=== PATIENT | male | born 1940 | race Caucasian/White ===

== ENCOUNTER → 2016-04-16 | Outpatient (CLI) | payer MEDICARE, BC | LOC: MW.CHFP 08:00 | PROVIDERS: ATTEND Family Medicine | DX: M06.9 Rheumatoid arthritis, unspecified (principal); L30.9 Dermatitis, unspecified | CPT/HCPCS: G0463 ==

== ENCOUNTER 2016-06-29 17:38 | Emergency (ER) | payer MEDICARE, BC ==
[2016-06-29] MEDS ORDERED: Sodium Chloride 0.9% 10 ML Syringe FLUSH PRN (17:49)
[2016-06-29] MEDS ORDERED: Pantoprazole 40 MG Vial IVPUSH ONE (17:49)
[2016-06-29] MEDS ORDERED: Sodium Chloride 0.9% 2.5 ML Syringe FLUSH PRN (17:49)
[2016-06-29] MEDS ORDERED: Pantoprazole 80 MG in Sodium Chloride 0.9% 100 ML IV SCH (18:00)
[2016-06-29] MEDS ORDERED: Sodium Chloride 0.9% 1,000 ML IV SCH (18:00)
--- NOTE | 2016-06-29 18:09 | EDM.PDOC ---
ED HPI GENERAL MEDICAL PROBLEM - General Chief Complaint: General Stated Complaint: SORE THROAT, FEVER Time Seen by Provider: 06/29/16 17:45 - History of Present Illness INITIAL COMMENTS - FREE TEXT/NARRATIVE: HISTORY AND PHYSICAL: History of present illness: Patient is a 75-year-old white male who presents with concern of generalized weakness sore throat with intermittent bleeding from the right peritonsillar area who also reports black stools x2-3 weeks he states the weakness has been more over the last day . Patient denies chest pain shortness of breath palpitations or other concern Review of systems: As per history of present illness and below otherwise all systems reviewed and negative. Past medical history: As per history of present illness and as reviewed below otherwise noncontributory. Surgical history: As per history of present illness and as reviewed below otherwise noncontributory. Social history: No reported history of drug or alcohol abuse. Family history: As per history of present illness and as reviewed below otherwise noncontributory. Physical exam: HEENT: Atraumatic, normocephalic, pupils reactive, negative for conjunctival pallor or scleral icterus, mucous membranes moist, throat clear, neck supple, nontender, trachea midline. Lungs: Slightly diminished coarse bilaterally, breath sounds equal bilaterally, chest nontender. Heart: S1S2, regular, negative for clicks, rubs, or JVD. Abdomen: Soft, nondistended, nontender. Negative for masses or hepatosplenomegaly. Negative for costovertebral tenderness. Pelvis: Stable nontender. Genitourinary: Deferred. Rectal: Nontender Brown stool heme-negative Extremities: Atraumatic, negative for cords or calf pain. Neurovascular unremarkable. Neuro: Awake, alert, oriented. Cranial nerves II through XII unremarkable. Cerebellum unremarkable. Motor and sensory unremarkable throughout. Exam nonfocal. Diagnostics: CBC CMP PT/INR troponin type and screen EKG chest x-ray Therapeutics: IV O2 monitor Impression: #1 history of right peritonsillar intermittent bleeding #2 generalized weakness #3 history of dark stool Definitive disposition and diagnosis as appropriate pending reevaluation and review of above. throat Pain Score (Numeric/FACES): 6 - Related Data Allergies Allergy/AdvReac Type Severity Reaction Status Date / Time No Known Allergies Allergy Verified 06/29/16 17:47 Home Meds: Home Meds Aspirin 81 mg PO DAILY 06/01/13 [History] Mometasone Furoate 1 applic TOP BID 05/12/14 [History] amLODIPine [Norvasc] 5 mg PO DAILY 05/12/14 [History] Folic Acid 1 mg PO DAILY 08/18/15 [History] Methotrexate Sodium [Methotrexate] 2.5 mg PO ASDIRECTED 08/18/15 [History] atorvaSTATin Calcium [Atorvastatin Calcium] 80 mg PO DAILY 08/18/15 [History] rOPINIRole HCl [Requip] 0.25 mg PO DAILY 08/18/15 [History] Albuterol [Proair HFA] 1 puff INH ASDIRECTED 06/29/16 [History] Dimethicone [Cerave] 1 appful TOP DAILY 06/29/16 [History] Past Medical History - Past Health History Medical/Surgical History: Denies Medical/Surgical History HEENT History: Reports: Impaired Vision Other HEENT History: wears glasses Cardiovascular History: Reports: High Cholesterol, Hypertension - Past Surgical History Musculoskeletal Surgical History: Reports: Shoulder Replacement, Other (See Below) Social & Family History - Family History Endocrine/Metabolic: Reports: Diabetes, type II - Tobacco Use Smoking Status *Q: Former Smoker Years of Tobacco use: 50 Used Tobacco, but Quit: Yes Month Tobacco Last Used: a week ago Second Hand Smoke Exposure: No - Alcohol Use Days Per Week of Alcohol Use: 0 Number of Drinks Per Day: 0 Total Drinks Per Week: 0 - Recreational Drug Use Recreational Drug Use: No ED ROS GENERAL - Review of Systems Review Of Systems: ROS reveals no pertinent complaints other than HPI. ED EXAM, GENERAL - Physical Exam Exam: See Below (See dictation) Course - Vital Signs Last Recorded V/S: Last Vital Signs Temp 37.9 C 06/29/16 17:47 Pulse 116 H 06/29/16 17:47 Resp 22 H 06/29/16 17:47 BP 134/71 06/29/16 17:47 Pulse Ox 93 L 06/29/16 17:47 - Orders/Labs/Meds Orders: Active Orders 24 hr Category Date Time Status Cardiac Monitoring [RC] . DIRECTED Care 06/29/16 17:48 Active EKG Documentation Completion [RC] STAT Care 06/29/16 17:48 Active Oxygen Therapy, ED [RC] ASDIRECTED Care 06/29/16 17:48 Active Pulse Oximetry [RC] ASDIRECTED Care 06/29/16 17:48 Active Chest 1V Frontal [CR] Stat Exams 06/29/16 17:49 Taken CULTURE STREP A CONFIRMATION [RM] Stat Lab 06/29/16 18:13 Results STREP SCRN A RAPID W CULT CONF [RM] Stat Lab 06/29/16 18:13 Results TYPE AND SCREEN [BBK] Stat Lab 06/29/16 18:08 Received UA W/MICROSCOPIC [URIN] Stat Lab 06/29/16 17:48 Uncollected Pantoprazole [ProTONIX IV] 80 mg Med 06/29/16 18:00 Active Sodium Chloride 0.9% [Normal Saline] 100 ml IV .Continuous Sodium Chloride 0.9% [Normal Saline] 1,000 ml Med 06/29/16 18:00 Active IV STAT Sodium Chloride 0.9% [Saline Flush] Med 06/29/16 17:49 Active 10 ml FLUSH ASDIRECTED PRN Sodium Chloride 0.9% [Saline Flush] Med 06/29/16 17:49 Active 2.5 ml FLUSH ASDIRECTED PRN Saline Lock Insert [OM.PC] Stat Oth 06/29/16 17:48 Ordered Medication Orders Pantoprazole Sodium 80 mg/ (Sodium Chloride) 100 mls @ 10 mls/hr IV .Continuous NARESH Last Admin: 06/29/16 18:23 Dose: 10 mls/hr Sodium Chloride (Normal Saline) 1,000 mls @ 125 mls/hr IV STAT NARESH Last Admin: 06/29/16 18:09 Dose: 125 mls/hr Sodium Chloride (Saline Flush) 10 ml FLUSH ASDIRECTED PRN PRN Reason: Keep Vein Open Sodium Chloride (Saline Flush) 2.5 ml FLUSH ASDIRECTED PRN PRN Reason: Keep Vein Open Labs: Laboratory Tests 06/29/16 06/29/16 06/29/16 Range/Units 18:08 18:08 18:08 WBC 4.27 (4.0-11.0) K/uL RBC 2.96 L (4.50-5.90) M/uL Hgb 11.1 L (13.0-17.0) g/dL Hct 34.0 L (38.0-50.0) % MCV 114.9 H (80.0-98.0) fL MCH 37.5 H (27.0-32.0) pg MCHC 32.6 (31.0-37.0) g/dL RDW Std Deviation 69.7 H (28.0-62.0) fl RDW Coeff of Jesse 17 H (11.0-15.0) % Plt Count 139 L (150-400) K/uL MPV 10.60 (7.40-12.00) fL Neut % (Auto) 72.3 (48.0-80.0) % Lymph % (Auto) 12.9 L (16.0-40.0) % [place] % (Auto) 7.5 (0.0-15.0) % Eos % (Auto) 7.3 H (0.0-7.0) % Baso % (Auto) 0.0 (0.0-1.5) % Neut # (Auto) 3.1 (1.4-5.7) K/uL Lymph # (Auto) 0.6 (0.6-2.4) K/uL [place] # (Auto) 0.3 (0.0-0.8) K/uL Eos # (Auto) 0.3 (0.0-0.7) K/uL Baso # (Auto) 0.0 (0.0-0.1) K/uL Nucleated RBC % 0.0 /100WBC Nucleated RBCs # 0 K/uL INR 1.09 (0.86-1.11) Sodium 139 (136-146) mmol/L Potassium 4.4 (3.5-5.1) mmol/L Chloride 108 (98-110) mmol/L Carbon Dioxide 23 (21-31) mmol/L BUN 18 (6.0-23.0) mg/dL Creatinine 1.3 (0.6-1.5) mg/dL Est Cr Clr Drug Dosing 49.13 mL/min Estimated GFR (MDRD) 53.5 ml/min Glucose 168 H (60-110) mg/dL Calcium 9.1 (8.8-10.8) mg/dL Total Bilirubin 1.5 (0.1-1.5) mg/dL AST 46 H (5-40) IU/L ALT 52 (8-54) IU/L Alkaline Phosphatase 133 (40-150) Troponin I (0.0-0.29) NG/ML Total Protein 6.1 (6.0-8.0) g/dL Albumin 3.4 (3.4-4.8) g/dL Globulin 2.7 (2.0-3.5) g/dL Albumin/Globulin Ratio 1.3 (1.3-2.8) 06/29/16 Range/Units 18:08 WBC (4.0-11.0) K/uL RBC (4.50-5.90) M/uL Hgb (13.0-17.0) g/dL Hct (38.0-50.0) % MCV (80.0-98.0) fL MCH (27.0-32.0) pg MCHC (31.0-37.0) g/dL RDW Std Deviation (28.0-62.0) fl RDW Coeff of Jesse (11.0-15.0) % Plt Count (150-400) K/uL MPV (7.40-12.00) fL Neut % (Auto) (48.0-80.0) % Lymph % (Auto) (16.0-40.0) % [place] % (Auto) (0.0-15.0) % Eos % (Auto) (0.0-7.0) % Baso % (Auto) (0.0-1.5) % Neut # (Auto) (1.4-5.7) K/uL Lymph # (Auto) (0.6-2.4) K/uL [place] # (Auto) (0.0-0.8) K/uL Eos # (Auto) (0.0-0.7) K/uL Baso # (Auto) (0.0-0.1) K/uL Nucleated RBC % /100WBC Nucleated RBCs # K/uL INR (0.86-1.11) Sodium (136-146) mmol/L Potassium (3.5-5.1) mmol/L Chloride (98-110) mmol/L Carbon Dioxide (21-31) mmol/L BUN (6.0-23.0) mg/dL Creatinine (0.6-1.5) mg/dL Est Cr Clr Drug Dosing mL/min Estimated GFR (MDRD) ml/min Glucose (60-110) mg/dL Calcium (8.8-10.8) mg/dL Total Bilirubin (0.1-1.5) mg/dL AST (5-40) IU/L ALT (8-54) IU/L Alkaline Phosphatase (40-150) Troponin I < 0.10 (0.0-0.29) NG/ML Total Protein (6.0-8.0) g/dL Albumin (3.4-4.8) g/dL Globulin (2.0-3.5) g/dL Albumin/Globulin Ratio (1.3-2.8) Meds: Medications Generic Name Dose Route Start Last Admin Trade Name Freq PRN Reason Stop Dose Admin Pantoprazole Sodium 80 mg/ 100 mls @ 10 mls/hr 06/29/16 18:00 06/29/16 18:23 Sodium Chloride IV 10 mls/hr .Continuous NARESH Administration Sodium Chloride 1,000 mls @ 125 mls/hr 06/29/16 18:00 06/29/16 18:09 Normal Saline IV 125 mls/hr STAT NARESH Administration Sodium Chloride 10 ml 06/29/16 17:49 Saline Flush FLUSH ASDIRECTED PRN Keep Vein Open Sodium Chloride 2.5 ml 06/29/16 17:49 Saline Flush FLUSH ASDIRECTED PRN Keep Vein Open Discontinued Medications Generic Name Dose Route Start Last Admin Trade Name Freq PRN Reason Stop Dose Admin Pantoprazole Sodium 80 mg 06/29/16 17:49 06/29/16 18:10 Protonix Iv IVPUSH 06/29/16 17:50 80 mg .BOLUS ONE Administration Departure - Departure Time of Disposition: 18:42 Disposition: Admitted As Inpatient 64 Condition: good Clinical Impression: Weakness, Pneumonia - Discharge Information Forms: ED Department Discharge - My Orders Last 24 Hours: My Active Orders 06/29/16 17:48 Cardiac Monitoring [RC] . DIRECTED EKG Documentation Completion [RC] STAT Oxygen Therapy, ED [RC] ASDIRECTED Pulse Oximetry [RC] ASDIRECTED UA W/MICROSCOPIC [URIN] Stat Saline Lock Insert [OM.PC] Stat 06/29/16 17:49 Chest 1V Frontal [CR] Stat Sodium Chloride 0.9% [Saline Flush] 10 ml FLUSH ASDIRECTED PRN Sodium Chloride 0.9% [Saline Flush] 2.5 ml FLUSH ASDIRECTED PRN 06/29/16 18:00 Pantoprazole [ProTONIX IV] 80 mg Sodium Chloride 0.9% [Normal Saline] 100 ml IV .Continuous Sodium Chloride 0.9% [Normal Saline] 1,000 ml IV STAT 06/29/16 18:08 TYPE AND SCREEN [BBK] Stat 06/29/16 18:13 CULTURE STREP A CONFIRMATION [RM] Stat STREP SCRN A RAPID W CULT CONF [RM] Stat - Assessment/Plan Last 24 Hours: My Active Orders 06/29/16 17:48 Cardiac Monitoring [RC] . DIRECTED EKG Documentation Completion [RC] STAT Oxygen Therapy, ED [RC] ASDIRECTED Pulse Oximetry [RC] ASDIRECTED UA W/MICROSCOPIC [URIN] Stat Saline Lock Insert [OM.PC] Stat 06/29/16 17:49 Chest 1V Frontal [CR] Stat Sodium Chloride 0.9% [Saline Flush] 10 ml FLUSH ASDIRECTED PRN Sodium Chloride 0.9% [Saline Flush] 2.5 ml FLUSH ASDIRECTED PRN 06/29/16 18:00 Pantoprazole [ProTONIX IV] 80 mg Sodium Chloride 0.9% [Normal Saline] 100 ml IV .Continuous Sodium Chloride 0.9% [Normal Saline] 1,000 ml IV STAT 06/29/16 18:08 TYPE AND SCREEN [BBK] Stat 06/29/16 18:13 CULTURE STREP A CONFIRMATION [RM] Stat STREP SCRN A RAPID W CULT CONF [RM] Stat
[2016-06-29] MEDS ORDERED: Levofloxacin/Dextrose 5%-Water 750 MG in Premix Bag 1 BAG IV ONE (18:43)
[2016-06-29 19:26] VITALS: BP 127/53
--- NOTE | 2016-07-01 14:57 | CR ---
MEXAM DATE: 06/29/16 PATIENT'S AGE: 75 Patient: RENÉ STAHL Facility: [place], [place] Site . Site : 1940 Study: XRay Chest [id number]/2017 6:23:06 PM Ordering Physician: Jasmeet Reynoso Final Report: HISTORY: Shortness of breath and fever. Comparison: None. Findings: Mild patchy airspace opacity in the lower lungs may represent early pneumonia. Heart size and pulmonary vascularity are within normal limits. Mild silhouetting of the right hemidiaphragm. Left shoulder arthroplasty. Dictated by Shanae Rutherford MD @ Jun 29 2016 6:27PM (Electronic Signature) Report Signed by Proxy. DELMY
== END 2016-06-29 19:15 | disposition left against medical advice (07) ==
LOC: MW.ED 17:38
DX: J18.9 Pneumonia, unspecified organism (principal); R53.1 Weakness; E78.00 Pure hypercholesterolemia, unspecified; I10 Essential (primary) hypertension; Z79.82 Long term (current) use of aspirin; Z79.899 Other long term (current) drug therapy; Z87.891 Personal history of nicotine dependence; Z86.2 Personal history of diseases of the blood and blood-forming organs and certain disorders involving the immune mechanism
CPT/HCPCS: 36415; 71010; 80053; 84484; 85025; 85610; 86850; 86900; 86901; 87040; 87081; 87880; 93005; 96365; 96376; 99284; C9113; J7030; J7040

== ENCOUNTER 2016-07-09 17:01 | Observation (INO) | payer MEDICARE, BC ==
--- NOTE | 2016-07-09 17:48 | PCM.HP ---
<Walker,Jeison - Last Filed: 07/09/16 19:24> H&P History of Present Illness - General Date of Service: 07/09/16 Admit Problem/Dx: 75 yo male with history of HTN, Hypercholesterolemia, RA, Eczema & RLS presented to [facility] clinic earlier today with rash and swelling of hands and feet. He was admitted directly to observation for Erythema Multiforme with Mucus Membrane involvement secondary to Levaquin use. Symptoms started 2-3 weeks ago and first began as swelling of both hands. He saw a [employer] PA 2 weeks ago and was told he has eczema and was prescribed Betamethasone cream. His swelling progressed up both his arms and he developed some blistering type lesions on his hands as well. He then presented to the ED on 06/29 for his swelling and during the work-up he was subsequently found to have a pneumonia but left AMA before work-up was complete. He was prescribed Levaquin prior to leaving the ED. Over the next few days he developed swelling of his feet and blistering lesions over his feet and back. Over the past 2 days he has started to have sore throat with some minor difficulty breathing and some pain with swallowing. He denies any recent change of clothing, linen, soap, detergent or other cleaning products. He has not eaten anything unusual. He has not travelled or been outdoors/hiking. He has not had any changes in his medications or new medications other than the betamethasone and levaquin. According to patient he took only 3 doses of levaquin but patients states he took all 5 doses. His home medications include Amlodipine, Atorvastatin, Ropinirole, Methotrexate, Folic Acid, Aspirin, Colbestasol. He is allergic to shellfish but denies eating any seafood at all. Source of Information: Patient, Family, Old Records - Related Data Allergies/Adverse Reactions: Allergies Allergy/AdvReac Type Severity Reaction Status Date / Time levofloxacin [From Levaquin] Allergy rashes Verified 07/09/16 18:04 Home Medications: Home Meds Aspirin 81 mg PO DAILY 06/01/13 [History] amLODIPine [Norvasc] 5 mg PO DAILY 05/12/14 [History] Methotrexate Sodium [Methotrexate] 15 mg PO WE@0900 08/18/15 [History] atorvaSTATin Calcium [Atorvastatin Calcium] 80 mg PO BEDTIME 08/18/15 [History] rOPINIRole HCl [Requip] 0.5 mg PO BEDTIME 08/18/15 [History] Folic Acid 1 mg PO DAILY #90 tablet 07/10/16 [Rx] Prednisone [IJD: Prednisone] 10 mg PO ASDIRECTED #85 tab 07/10/16 [Rx] Past Medical History - Past Health History Medical/Surgical History: Denies Medical/Surgical History HEENT History: Reports: Impaired Vision Other HEENT History: wears glasses Cardiovascular History: Reports: High Cholesterol, Hypertension Respiratory History: Reports: Asthma Gastrointestinal History: Reports: None Genitourinary History: Reports: None Musculoskeletal History: Reports: Other (See Below) Other Musculoskeletal History: Arthritis Neurological History: Reports: None Psychiatric History: Reports: None Endocrine/Metabolic History: Reports: None Hematologic History: Reports: None Immunologic History: Reports: None Oncologic (Cancer) History: Reports: None Dermatologic History: Reports: Eczema - Infectious Disease History Infectious Disease History: Reports: Chicken Pox, Mumps - Past Surgical History Musculoskeletal Surgical History: Reports: Shoulder Replacement, Other (See Below) Social & Family History - Family History Family Medical History: Noncontributory Endocrine/Metabolic: Reports: Diabetes, type II - Tobacco Use Smoking Status *Q: Former Smoker Years of Tobacco use: 50 Used Tobacco, but Quit: Yes Month Tobacco Last Used: a week ago Second Hand Smoke Exposure: No - Caffeine Use Caffeine Use: Reports: Coffee - Alcohol Use Days Per Week of Alcohol Use: 0 Number of Drinks Per Day: 0 Total Drinks Per Week: 0 - Recreational Drug Use Recreational Drug Use: No H&P Review of Systems - Review of Systems: Review Of Systems: See Below General: Reports: Other (general swelling) Pulmonary: Reports: Shortness of Breath Cardiovascular: Reports: No Symptoms Gastrointestinal: Reports: No Symptoms Genitourinary: Reports: No Symptoms Musculoskeletal: Reports: Other (swelling) Skin: Reports: Rash, Erythema, Lesions Psychiatric: Reports: No Symptoms Neurological: Reports: Other (memory deficit) Exam - Exam Exam: See Below - Vital Signs Weight: 91 kg - Exam General: Other (generalized swelling) HEENT: Conjunctiva Clear, EACs Clear, Other (diffuse oral vesicular lesions and swelling) Neck: Other (edema) Lungs: Other (edema) Cardiovascular: Regular Rate, Regular Rhythm Abdomen: Normal Bowel Sounds, Soft, Pelvis Stable Extremities: Edema Skin: Other (diffuse vesicular lesions of BL hands, forearms and feet. diffuse erythema multiforme lesions of back) Neurological: Reflexes Equal Bilateral - Patient Data Result Diagrams: 07/09/16 19:07 *Q Meaningful Use (ADM) - VTE *Q VTE Criteria *Q: - Stroke *Q Stroke Criteria *Q: - AMI *Q AMI Criteria *Q: Problem List Initiated/Reviewed/Updated: Yes Orders Last 24hrs: Active Orders 24 hr Category Date Time Status Soft Diet [DIET] Diet 07/09/16 Dinner Active Assessment/Plan Comment:: Assessment: 75 yo male with history of HTN, Hypercholesterolemia, RA, Eczema & RLS admitted for generalized swelling and erythema multiforme rash with mucus membrane involvement likely secondary to drug reaction to levofloxacin. Patient also has memory deficit which may be secondary to dementia. Plan: 1. admit to observation 2. hold all medications 3. soft diet 4. Solumedrol IV 125 mg singe dose today 5. Start PO Prednisone tomorrow if improvement seen 6. obtain CXR due to PNA on recent CXR 7. order CBC, CMP, CRP, Total CK 8. as per orders <Keith Sher - Last Filed: 07/13/16 15:51> H&P History of Present Illness - General Admit Problem/Dx: Admission Diagnosis/Problem Admission Diagnosis/Problem Generalized edema I performed a history and physical examination of the patient and I have discussed his management with the resident. I have reviewed the residents note and agree with the documented findings and plan of care. Exam - Vital Signs Vital Signs: Last Vital Signs Temp 37.0 C 07/10/16 04:00 Pulse 66 07/10/16 04:00 Resp 16 07/10/16 04:00 BP 124/60 07/10/16 04:00 Pulse Ox 93 L 07/10/16 04:00 - Patient Data Result Diagrams: 07/10/16 04:24 07/09/16 19:07 *Q Meaningful Use (ADM) - VTE *Q VTE Criteria *Q: - Stroke *Q Stroke Criteria *Q: - AMI *Q AMI Criteria *Q:
[2016-07-09] MEDS ORDERED: methylPREDNISolone Sodium Succinate 125 MG/2 ML SDV IVPUSH ONE (18:03)
[2016-07-09 19:40] LABS: CHLORIDE,CL 110 mmol/L (98-110); SODIUM,NA 141 mmol/L (136-146)
[2016-07-10 04:58] VITALS: BP 124/60
--- NOTE | 2016-07-10 09:00 | PCM.DCSUM1 ---
Discharge Summary - Hospital Course Free Text/Narrative:: 75 yo male was directly admitted to observation due to Acute generalized edema and Erythema Multiforme secondary to Levaquin. He was monitored for oral airway swelling while starting Steroid therapy. Patient was stable otherwise. He was given Solumedrol 125 mg IV on first night. He remained stable overnight. There was no hypoxia or sob. He was discharged home on 4 week taper of Prednisone. He will be following up with Dr. Pretty on 07/24/16 at 2:00 pm - Discharge Data Discharge Date: 07/10/16 Discharge Disposition: Home, Self-Care 01 Condition: Good - Patient Instructions Diet: Usual Diet as Tolerated Activity: As Tolerated Notify Provider of: Fever, Increased Pain, Swelling and Redness, Drainage, Nausea and/or Vomiting - Discharge Plan Prescriptions/Med Rec: Folic Acid 1 mg PO DAILY #90 tablet Home Medications: Home Meds Aspirin 81 mg PO DAILY 06/01/13 [History] amLODIPine [Norvasc] 5 mg PO DAILY 05/12/14 [History] Methotrexate Sodium [Methotrexate] 15 mg PO WE@0900 08/18/15 [History] atorvaSTATin Calcium [Atorvastatin Calcium] 80 mg PO BEDTIME 08/18/15 [History] rOPINIRole HCl [Requip] 0.5 mg PO BEDTIME 08/18/15 [History] Folic Acid 1 mg PO DAILY #90 tablet 07/10/16 [Rx] - Patient Data Vitals - Most Recent: Last Vital Signs Temp 37.0 C 07/10/16 04:00 Pulse 66 07/10/16 04:00 Resp 16 07/10/16 04:00 BP 124/60 07/10/16 04:00 Pulse Ox 93 L 07/10/16 04:00 Weight - Most Recent: 91 kg I&O - Last 24 hours: Intake & Output 07/09/16 07/10/16 07/10/16 22:59 06:59 14:59 Intake Total 550 Output Total 630 Balance -80 Lab Results - Last 24 hrs: Laboratory Results - last 24 hr 07/09/16 07/09/16 07/09/16 Range/Units 19:07 19:07 19:07 WBC 5.40 (4.0-11.0) K/uL RBC 3.03 L (4.50-5.90) M/uL Hgb 11.2 L (13.0-17.0) g/dL Hct 34.4 L (38.0-50.0) % MCV 113.5 H (80.0-98.0) fL MCH 37.0 H (27.0-32.0) pg MCHC 32.6 (31.0-37.0) g/dL RDW Std Deviation 66.0 H (28.0-62.0) fl RDW Coeff of Jesse 16 H (11.0-15.0) % Plt Count 110 L (150-400) K/uL MPV 10.30 (7.40-12.00) fL Neut % (Auto) 74.7 (48.0-80.0) % Lymph % (Auto) 9.4 L (16.0-40.0) % [place] % (Auto) 3.3 (0.0-15.0) % Eos % (Auto) 12.6 H (0.0-7.0) % Baso % (Auto) 0.0 (0.0-1.5) % Neut # (Auto) 4.0 (1.4-5.7) K/uL Lymph # (Auto) 0.5 L (0.6-2.4) K/uL [place] # (Auto) 0.2 (0.0-0.8) K/uL Eos # (Auto) 0.7 (0.0-0.7) K/uL Baso # (Auto) 0.0 (0.0-0.1) K/uL Nucleated RBC % 0.0 /100WBC Nucleated RBCs # 0 K/uL Sodium 141 (136-146) mmol/L Potassium 4.0 (3.5-5.1) mmol/L Chloride 110 (98-110) mmol/L Carbon Dioxide 20 L (21-31) mmol/L BUN 20 (6.0-23.0) mg/dL Creatinine 0.8 (0.6-1.5) mg/dL Est Cr Clr Drug Dosing 79.84 mL/min Estimated GFR (MDRD) > 60.0 ml/min Glucose 92 (60-110) mg/dL Calcium 8.3 L (8.8-10.8) mg/dL Total Bilirubin 0.9 (0.1-1.5) mg/dL AST 43 H (5-40) IU/L ALT 35 (8-54) IU/L Alkaline Phosphatase 118 (40-150) Creatine Kinase 35 (9-236) IU/L C-Reactive Protein 13.93 H (0.0-0.5) mg/dL Total Protein 5.8 L (6.0-8.0) g/dL Albumin 3.0 L (3.4-4.8) g/dL Globulin 2.8 (2.0-3.5) g/dL Albumin/Globulin Ratio 1.1 L (1.3-2.8) Vitamin B12 827 (200-1100) PG/ML 07/10/16 07/10/16 Range/Units 04:24 04:24 WBC 3.58 L (4.0-11.0) K/uL RBC 2.94 L (4.50-5.90) M/uL Hgb 10.7 L (13.0-17.0) g/dL Hct 33.2 L (38.0-50.0) % MCV 112.9 H (80.0-98.0) fL MCH 36.4 H (27.0-32.0) pg MCHC 32.2 (31.0-37.0) g/dL RDW Std Deviation 65.3 H (28.0-62.0) fl RDW Coeff of Jesse 16 H (11.0-15.0) % Plt Count 124 L (150-400) K/uL MPV 11.40 (7.40-12.00) fL Neut % (Auto) 93.3 H (48.0-80.0) % Lymph % (Auto) 5.9 L (16.0-40.0) % [place] % (Auto) 0.8 (0.0-15.0) % Eos % (Auto) 0.0 (0.0-7.0) % Baso % (Auto) 0.0 (0.0-1.5) % Neut # (Auto) 3.3 (1.4-5.7) K/uL Lymph # (Auto) 0.2 L (0.6-2.4) K/uL [place] # (Auto) 0.0 (0.0-0.8) K/uL Eos # (Auto) 0.0 (0.0-0.7) K/uL Baso # (Auto) 0.0 (0.0-0.1) K/uL Nucleated RBC % 0.0 /100WBC Nucleated RBCs # 0 K/uL Sodium (136-146) mmol/L Potassium (3.5-5.1) mmol/L Chloride (98-110) mmol/L Carbon Dioxide (21-31) mmol/L BUN (6.0-23.0) mg/dL Creatinine (0.6-1.5) mg/dL Est Cr Clr Drug Dosing mL/min Estimated GFR (MDRD) ml/min Glucose (60-110) mg/dL Calcium (8.8-10.8) mg/dL Total Bilirubin (0.1-1.5) mg/dL AST (5-40) IU/L ALT (8-54) IU/L Alkaline Phosphatase (40-150) Creatine Kinase (9-236) IU/L C-Reactive Protein 12.27 H (0.0-0.5) mg/dL Total Protein (6.0-8.0) g/dL Albumin (3.4-4.8) g/dL Globulin (2.0-3.5) g/dL Albumin/Globulin Ratio (1.3-2.8) Vitamin B12 (200-1100) PG/ML Med Orders - Current: Current Medications Discontinued Medications Methylprednisolone Sodium Succinate (Solu-Medrol) 125 mg IVPUSH ONETIME ONE Stop: 07/09/16 18:04 Last Admin: 07/09/16 18:30 Dose: 125 mg *Q Meaningful Use (DIS) - VTE *Q VTE Criteria *Q: - Stroke *Q Stroke Criteria *Q: - AMI *Q AMI Criteria *Q:
--- NOTE | 2016-07-10 10:17 | CR ---
EXAM DATE: 07/09/16 PATIENT'S AGE: 75 Patient: RENÉ STAHL Facility: [place], [place] Site . Site : 1940 Study: XRay Chest [id number]/30/2017 8:29:23 PM Ordering Physician: Nikky Parker Final Report: INDICATION: Pneumonia, shortness of breath. TECHNIQUE: Chest radiograph 2 views COMPARISON: 06/29/2016. FINDINGS: Cardiovascular and mediastinum: The heart silhouette is normal in size and morphology. The mediastinum is normal in appearance. Lungs and pleural spaces: Both lungs are unremarkable in appearance. No sign of pleural effusion seen. No pneumothorax is identified. Bones and soft tissues: Left shoulder arthroplasty hardware, partially visualized. IMPRESSION: 1. No residual infiltrates identified, with particular attention to the lower lung zones. Improved aeration of the lung bases from 10 days prior. No new focal infiltrate identified. Dictated by Clay Yuen MD @ 07/09/2016 8:33:24 PM Dictated by: Clay Yuen MD @ 07/09/2016 20:33:28 (Electronic Signature) Report Signed by Proxy. [facility] HOSPITALKatherine
== END 2016-07-10 11:15 | disposition home or self-care (01) ==
LOC: MW.MS 17:01
PROVIDERS: ADMIT Internal Medicine; ATTEND Internal Medicine
DX: R60.1 Generalized edema (principal); L51.9 Erythema multiforme, unspecified; T37.8X5A Adverse effect of other specified systemic anti-infectives and antiparasitics, initial encounter; I10 Essential (primary) hypertension; E78.00 Pure hypercholesterolemia, unspecified; M06.9 Rheumatoid arthritis, unspecified; L30.9 Dermatitis, unspecified; G25.81 Restless legs syndrome; J45.909 Unspecified asthma, uncomplicated; M19.90 Unspecified osteoarthritis, unspecified site; Z87.891 Personal history of nicotine dependence; Z79.82 Long term (current) use of aspirin; Z79.899 Other long term (current) drug therapy; Z96.619 Presence of unspecified artificial shoulder joint
CPT/HCPCS: 36415; 71020; 80053; 82550; 82607; 85025; 86140; 96374; G0378; J2930

== ENCOUNTER 2016-07-26 11:47 | Emergency (ER) | payer MEDICARE, BC ==
[2016-07-26 12:18] VITALS: BP 147/91
--- NOTE | 2016-07-26 12:32 | EDM.PDOC ---
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 Review of systems: As per history of present illness and below otherwise all systems reviewed and negative. Past medical history: As per history of present illness and as reviewed below otherwise noncontributory. Surgical history: As per history of present illness and as reviewed below otherwise noncontributory. Social history: No reported history of drug or alcohol abuse. Family history: As per history of present illness and as reviewed below otherwise noncontributory. Physical exam: HEENT: Atraumatic, normocephalic, pupils reactive, negative for conjunctival pallor or scleral icterus, mucous membranes moist, throat clear, neck supple, nontender, trachea midline. Lungs: Clear to auscultation, breath sounds equal bilaterally, chest nontender. Heart: S1S2, regular, negative for clicks, rubs, or JVD. Abdomen: Soft, nondistended, nontender. Negative for masses or hepatosplenomegaly. Negative for costovertebral tenderness. Pelvis: Stable nontender. Genitourinary: Deferred. Rectal: Deferred. Extremities: Atraumatic, negative for cords or calf pain. Neurovascular unremarkable. Neuro: Awake, alert, oriented. Cranial nerves II through XII unremarkable. Cerebellum unremarkable. Motor and sensory unremarkable throughout. Exam nonfocal. Skin: Bilateral hands with several lesions in various stages of infection and nonhealing. Diagnostics: [] Therapeutics: [] Impression: [Erythema multiforma exacerbation] Plan: [Antibiotics, Neurontin, referring to pain medicine] Definitive disposition and diagnosis as appropriate pending reevaluation and review of above. Bilateral Hand Pain Score (Numeric/FACES): 10 - Related Data Allergies Allergy/AdvReac Type Severity Reaction Status Date / Time levofloxacin [From Levaquin] Allergy rashes Verified 07/26/16 11:58 Home Meds: Home Meds Aspirin 325 mg PO DAILY 06/01/13 [History] amLODIPine [Norvasc] 5 mg PO DAILY 05/12/14 [History] Methotrexate Sodium [Methotrexate] 15 mg PO WE@0900 08/18/15 [History] atorvaSTATin Calcium [Atorvastatin Calcium] 80 mg PO BEDTIME 08/18/15 [History] rOPINIRole HCl [Requip] 0.5 mg PO BEDTIME 08/18/15 [History] Folic Acid 1 mg PO DAILY #90 tablet 07/10/16 [Rx] Prednisone [IJD: Prednisone] 10 mg PO ASDIRECTED #85 tab 07/10/16 [Rx] Cephalexin [Keflex] 500 mg PO QID #40 capsule 07/26/16 [Rx] Gabapentin [Neurontin] 300 mg PO TID #90 cap 07/26/16 [Rx] Past Medical History - Past Health History Medical/Surgical History: Denies Medical/Surgical History HEENT History: Reports: Impaired Vision Other HEENT History: wears glasses Cardiovascular History: Reports: High Cholesterol, Hypertension, Stents Respiratory History: Reports: Asthma Gastrointestinal History: Reports: None Genitourinary History: Reports: None Musculoskeletal History: Reports: Other (See Below) Other Musculoskeletal History: Arthritis Neurological History: Reports: None Psychiatric History: Reports: None Endocrine/Metabolic History: Reports: None Hematologic History: Reports: None Immunologic History: Reports: None Oncologic (Cancer) History: Reports: None Dermatologic History: Reports: Eczema - Infectious Disease History Infectious Disease History: Reports: Chicken Pox, Measles, Mumps - Past Surgical History Musculoskeletal Surgical History: Reports: Shoulder Replacement Social & Family History - Family History Family Medical History: Noncontributory HEENT: Reports: None Cardiac: Reports: None Respiratory: Reports: None GI: Reports: None : Reports: None OBGYN: Reports: None Musculoskeletal: Reports: None Neurological: Reports: None Psychiatric: Reports: None Endocrine/Metabolic: Reports: Diabetes, type II Hematologic: Reports: None Immunologic: Reports: None Dermatologic: Reports: None Oncologic: Reports: None - Tobacco Use Smoking Status *Q: Never Smoker Years of Tobacco use: 50 Used Tobacco, but Quit: Yes Month Tobacco Last Used: a week ago Second Hand Smoke Exposure: No - Caffeine Use Caffeine Use: Reports: Coffee - Alcohol Use Days Per Week of Alcohol Use: 0 Number of Drinks Per Day: 0 Total Drinks Per Week: 0 - Recreational Drug Use Recreational Drug Use: No ED ROS GENERAL - Review of Systems Review Of Systems: See Below (History of present illness) ED EXAM, SKIN/RASH Exam: See Below (See history of present illness) Course - Vital Signs Last Recorded V/S: Last Vital Signs Temp 36.7 C 07/26/16 11:52 Pulse 106 H 07/26/16 11:52 Resp 18 07/26/16 11:52 BP 147/91 H 07/26/16 11:52 Pulse Ox 93 L 07/26/16 11:52 Departure - Departure Time of Disposition: 12:32 Disposition: Home, Self-Care 01 Clinical Impression: Erythema multiforme - Discharge Information Forms: ED Department Discharge Additional Instructions: The following information is given to patients seen in the emergency department who are being discharged to home. This information is to outline your options for follow-up care. We provide all patients seen in our emergency department with a follow-up referral. The need for follow-up, as well as the timing and circumstances, are variable depending upon the specifics of your emergency department visit. If you don't have a primary care physician on staff, we will provide you with a referral. We always advise you to contact your personal physician following an emergency department visit to inform them of the circumstance of the visit and for follow-up with them and/or the need for any referrals to a consulting specialist. The emergency department will also refer you to a specialist when appropriate. This referral assures that you have the opportunity for follow-up care with a specialist. All of these measure are taken in an effort to provide you with optimal care, which includes your follow-up. Under all circumstances we always encourage you to contact your private physician who remains a resource for coordinating your care. When calling for follow-up care, please make the office aware that this follow-up is from your recent emergency room visit. If for any reason you are refused follow-up, please contact the [facility] Emergency Department at and asked to speak to the emergency department charge nurse. Take medication as directed Follow-up with PCP in 1-2 days Return to ED as needed as discussed
== END 2016-07-26 12:50 | disposition home or self-care (01) ==
LOC: MW.ED 11:47
DX: L51.9 Erythema multiforme, unspecified (principal); I10 Essential (primary) hypertension; E78.00 Pure hypercholesterolemia, unspecified; J45.909 Unspecified asthma, uncomplicated; M19.90 Unspecified osteoarthritis, unspecified site; Z98.890 Other specified postprocedural states; Z87.891 Personal history of nicotine dependence; Z79.82 Long term (current) use of aspirin; Z79.899 Other long term (current) drug therapy; Z88.1 Allergy status to other antibiotic agents
CPT/HCPCS: 99282; 99283

== ENCOUNTER 2016-08-07 10:32 | Inpatient (IN) | payer MEDICARE, BC ==
[2016-08-07] MEDS ORDERED: methylPREDNISolone Sodium Succinate 125 MG/2 ML SDV IVPUSH ONE (11:44)
[2016-08-07] MEDS ORDERED: Sodium Chloride 0.9% 2.5 ML Syringe FLUSH PRN (12:27)
[2016-08-07] MEDS ORDERED: Temazepam 15 MG Cap PO PRN (12:27)
[2016-08-07] MEDS ORDERED: Sodium Chloride 0.9% 10 ML Syringe FLUSH PRN (12:27)
[2016-08-07] MEDS ORDERED: LORazepam 2 MG/ML MDV IVPUSH PRN (12:33)
--- NOTE | 2016-08-07 12:58 | PCM.HP ---
H&P History of Present Illness - General Date of Service: 08/07/16 Admit Problem/Dx: Admission Diagnosis/Problem Admission Diagnosis/Problem Cellulitis - History of Present Illness Initial Comments - Free Text/Narative: This man was referred from Dr Pretty's/Dr Shell's clinic today. He has a history of erythema multiforme a few weeks ago. He also, reportedly, had some oral ulcers. He was treated with a taper of prednisone but returned to the clinic today unable to walk due to red, sore and swollen legs. He has some cognitive/short term memory impairment. He was treated previously with levaquin for community acquired pneumonia and it was thought that the levaquin might have been the cause of the LE erythema multiforme. - Related Data Allergies/Adverse Reactions: Allergies Allergy/AdvReac Type Severity Reaction Status Date / Time levofloxacin [From Levaquin] Allergy rashes Verified 07/26/16 11:58 lisinopril Allergy Rash Verified 08/07/16 11:42 contrast Allergy Rash Uncoded 08/07/16 11:42 Home Medications: Home Meds Aspirin 325 mg PO DAILY 06/01/13 [History] amLODIPine [Norvasc] 5 mg PO DAILY 05/12/14 [History] Methotrexate Sodium [Methotrexate] 15 mg PO WE@0900 08/18/15 [History] atorvaSTATin Calcium [Atorvastatin Calcium] 80 mg PO BEDTIME 08/18/15 [History] rOPINIRole HCl [Requip] 0.5 mg PO BEDTIME 08/18/15 [History] Folic Acid 1 mg PO DAILY #90 tablet 07/10/16 [Rx] Prednisone [IJD: Prednisone] 10 mg PO ASDIRECTED #85 tab 07/10/16 [Rx] Cephalexin [Keflex] 500 mg PO QID #40 capsule 07/26/16 [Rx] Past Medical History - Past Health History Medical/Surgical History: Denies Medical/Surgical History HEENT History: Reports: Impaired Vision Other HEENT History: wears glasses Cardiovascular History: Reports: High Cholesterol, Hypertension, PVD, Stents, Other (See Below) (history of chf) Respiratory History: Reports: Asthma, COPD Gastrointestinal History: Reports: None. Denies: Cirrhosis Genitourinary History: Reports: None Musculoskeletal History: Reports: Back Pain, Chronic, Gout, RA, Other (See Below ) Other Musculoskeletal History: Arthritis Neurological History: Reports: Other (See Below) (memory loss ; suspected dementia; restless legs syndrome) Psychiatric History: Reports: None, Other (See Below) (memory impairment/ suspected early dementia) Endocrine/Metabolic History: Reports: None, Other (See Below) (vitamin B12 deficiency). Denies: Diabetes, Type II Hematologic History: Reports: None, Other (See Below) (thrombocytopenia). Denies: Anticoagulation Therapy Immunologic History: Reports: None Oncologic (Cancer) History: Reports: None Dermatologic History: Reports: Eczema - Infectious Disease History Infectious Disease History: Reports: Chicken Pox, Measles, Mumps - Past Surgical History Musculoskeletal Surgical History: Reports: Shoulder Replacement Social & Family History - Family History Family Medical History: Noncontributory HEENT: Reports: None Cardiac: Reports: None Respiratory: Reports: None GI: Reports: None : Reports: None OBGYN: Reports: None Musculoskeletal: Reports: None Neurological: Reports: None Psychiatric: Reports: None Endocrine/Metabolic: Reports: Diabetes, type II Hematologic: Reports: None Immunologic: Reports: None Dermatologic: Reports: None Oncologic: Reports: None - Tobacco Use Smoking Status *Q: Former Smoker Years of Tobacco use: 50 Used Tobacco, but Quit: Yes Month Tobacco Last Used: unrecalled Second Hand Smoke Exposure: No - Caffeine Use Caffeine Use: Reports: Coffee - Alcohol Use Days Per Week of Alcohol Use: 0 Number of Drinks Per Day: 0 Total Drinks Per Week: 0 Alcohol Use in Last Twelve Months: No - Recreational Drug Use Recreational Drug Use: No H&P Review of Systems - Review of Systems: Review Of Systems: See Below General: Reports: Other (he felt warm). Denies: Fever HEENT: Denies: Sore Throat Pulmonary: Denies: Shortness of Breath, Cough, Sputum Cardiovascular: Denies: Chest Pain Gastrointestinal: Reports: Abdominal Pain (occasional abdominal pain; frequent constipation). Denies: Bloody Stool, Difficulty Swallowing, Hematemesis, Hematochezia, Melena, Stool Incontinence, Vomiting Genitourinary: Denies: Dysuria, Frequency Musculoskeletal: Reports: Back Pain Skin: Denies: Cyanosis Psychiatric: Reports: Other (memory impairment) Exam - Exam Exam: See Below - Vital Signs Vital Signs: Last Vital Signs Temp 98.5 F 08/07/16 10:55 Pulse 93 08/07/16 10:55 Resp 20 08/07/16 10:55 BP 128/72 08/07/16 10:55 Pulse Ox 94 L 08/07/16 10:55 Weight: 86.3 kg - Exam General: Alert, Cooperative, Other (He cannot tell me the correct year. He shows poor understanding of his past medical history; for example he states that he has no history of any heart disease) HEENT: EOMI, Other (tongue with exudate c/w thrush) Lungs: Clear to Auscultation Cardiovascular: Regular Rate, Regular Rhythm Abdomen: Soft, Tenderness (+/- minimal diffuse lower abdominal tenderness) (Male) Exam: Deferred Rectal (Males) Exam: Deferred Extremities: Other (2-3 plus bilateral LE edema pitting; diffuse increased warmth and erythema c/w cellulitis. diffuse swelling MCP's, PIP's , DIP's with some crusted areas onfingers; pain with motion of fingers and hands ) Skin: Other (raised pink partially blanching papules non pruritic mainly over back ) Neurological: Normal Speech Neuro Extensive - Mental Status: Normal Mood/Affect Neuro Extensive - Motor, Sensory, Reflexes: No: Facial palsy (L), Facial Palsy ( R), Hemeplagia (R), Hemeplagia (L) Psychiatric: No: Agitated, Hallucinations - Patient Data Result Diagrams: 08/07/16 12:48 *Q Meaningful Use (ADM) - VTE *Q VTE Criteria *Q: - Stroke *Q Stroke Criteria *Q: - AMI *Q AMI Criteria *Q: - Problem List (1) Cellulitis SNOMED Code(s): 619862625 ICD Code: L03.90 - CELLULITIS, UNSPECIFIED Status: Acute Current Visit: Yes (2) Rheumatoid arthritis flare SNOMED Code(s): 062882846 ICD Code: M06.9 - RHEUMATOID ARTHRITIS, UNSPECIFIED Status: Acute Current Visit: Yes (3) Drug side effects SNOMED Code(s): 69076683 ICD Code: T88.7XXA - UNSP ADVERSE EFFECT OF DRUG OR MEDICAMENT, INIT ENCNTR Status: Acute Current Visit: Yes (4) History of CHF (congestive heart failure) SNOMED Code(s): 589126064 ICD Code: Z86.79 - PERSONAL HISTORY OF OTHER DISEASES OF THE CIRCULATORY SYSTEM Status: Acute Current Visit: Yes (5) History of chronic hypertension SNOMED Code(s): 545675306 ICD Code: Z86.79 - PERSONAL HISTORY OF OTHER DISEASES OF THE CIRCULATORY SYSTEM Status: Acute Current Visit: Yes (6) Memory impairment SNOMED Code(s): 777750467 ICD Code: R41.3 - OTHER AMNESIA Status: Acute Current Visit: Yes (7) Thrush SNOMED Code(s): 44527071 ICD Code: B37.0 - CANDIDAL STOMATITIS Status: Acute Current Visit: Yes (8) Erythema multiforme SNOMED Code(s): 17427183 ICD Code: L51.9 - ERYTHEMA MULTIFORME, UNSPECIFIED Status: Acute Current Visit: No Problem List Initiated/Reviewed/Updated: Yes Orders Last 24hrs: Active Orders 24 hr Category Date Time Status Patient Status [ADT] Routine ADT 08/07/16 10:55 Active Oxygen Therapy [RC] PRN Care 08/07/16 10:55 Active Oxygen Therapy [RC] PRN Care 08/07/16 12:27 Active VTE/DVT Education [RC] PER UNIT ROUTINE Care 08/07/16 12:27 Active Vital Signs [RC] Q4H Care 08/07/16 10:55 Active Vital Signs [RC] Q4H Care 08/07/16 12:27 Active Regular Diet [DIET] Diet 08/07/16 Lunch Active CBC WITH AUTO DIFF [HEME] AM Lab 08/08/16 05:11 Ordered CBC WITH AUTO DIFF [HEME] AM Lab 08/09/16 05:11 Ordered CBC WITH AUTO DIFF [HEME] AM Lab 08/10/16 05:11 Ordered CBC WITH AUTO DIFF [HEME] Routine Lab 08/07/16 12:48 Received COMPREHENSIVE METABOLIC PN,CMP [CHEM] AM Lab 08/08/16 05:11 Ordered COMPREHENSIVE METABOLIC PN,CMP [CHEM] AM Lab 08/09/16 05:11 Ordered COMPREHENSIVE METABOLIC PN,CMP [CHEM] AM Lab 08/10/16 05:11 Ordered COMPREHENSIVE METABOLIC PN,CMP [CHEM] Routine Lab 08/07/16 12:48 Received ESR [SEDIMENTATION RATE AUTO] [HEME] Routine Lab 08/07/16 12:48 Received MAGNESIUM [CHEM] Routine Lab 08/07/16 12:48 Received VANCOMYCIN TROUGH [CHEM] Routine Lab 08/09/16 11:30 Ordered Aspirin Med 08/08/16 09:00 Active 324 mg PO DAILY Folic Acid Med 08/08/16 09:00 Active 1 mg PO DAILY Gabapentin [Neurontin] Med 08/07/16 14:00 Active 300 mg PO TID Heparin Sodium Med 08/08/16 08:00 Active 5,000 units SUBCUT Q8H LORazepam [Ativan] Med 08/07/16 12:33 Active 1 mg IVPUSH Q4H PRN Nystatin [Mycostatin] Med 08/07/16 13:00 Active 5 ml PO QID Piperacillin/Tazobactam [Piperacil-Tazobact] 3.375 gm Med 08/07/16 14:00 Active Sodium Chloride 0.9% [Normal Saline] 50 ml IV Q6H Sodium Chloride 0.9% [Saline Flush] Med 08/07/16 12:27 Active 10 ml FLUSH ASDIRECTED PRN Sodium Chloride 0.9% [Saline Flush] Med 08/07/16 12:27 Active 2.5 ml FLUSH ASDIRECTED PRN Temazepam [Restoril] Med 08/07/16 12:27 Active 15 mg PO BEDTIME PRN Vancomycin 1.5 gm Med 08/07/16 13:00 Active Sodium Chloride 0.9% [Normal Saline] 500 ml IV Q12H Vancomycin Pharmacy to Dose [Pharmacy to Dose - Med 08/07/16 11:45 Active Vancomycin] 1 dose .XX ASDIRECTED amLODIPine [Norvasc] Med 08/08/16 09:00 Active 5 mg PO DAILY atorvaSTATin [Lipitor] Med 08/07/16 21:00 Active 80 mg PO BEDTIME rOPINIRole [Requip] Med 08/07/16 21:00 Active 0.5 mg PO BEDTIME Saline Lock Insert [OM.PC] Routine Oth 08/07/16 12:27 Ordered Resuscitation Status Routine Resus Stat 08/07/16 10:55 Ordered Medication Orders Amlodipine Besylate (Norvasc) 5 mg PO DAILY NARESH Aspirin (Aspirin) 324 mg PO DAILY NARESH Atorvastatin Calcium (Lipitor) 80 mg PO BEDTIME NARESH Folic Acid (Folic Acid) 1 mg PO DAILY NARESH Gabapentin (Neurontin) 300 mg PO TID NARESH Heparin Sodium (Porcine) (Heparin Sodium) 5,000 units SUBCUT Q8H NARESH Vancomycin HCl 1.5 gm/ Sodium (Chloride) 500 mls @ 250 mls/hr IV Q12H NARESH Piperacillin Sod/Tazobactam (Sod 3.375 gm/ Sodium Chloride) 50 mls @ 100 mls/ hr IV Q6H NARESH Lorazepam (Ativan) 1 mg IVPUSH Q4H PRN PRN Reason: Anxiety Nystatin (Mycostatin) 5 ml PO QID NARESH Ropinirole HCl (Requip) 0.5 mg PO BEDTIME NARESH Sodium Chloride (Saline Flush) 10 ml FLUSH ASDIRECTED PRN PRN Reason: Keep Vein Open Sodium Chloride (Saline Flush) 2.5 ml FLUSH ASDIRECTED PRN PRN Reason: Keep Vein Open Temazepam (Restoril) 15 mg PO BEDTIME PRN PRN Reason: Sleep Vancomycin HCl (Pharmacy To Dose - Vancomycin) 1 dose .XX ASDIRECTED [facility] Assessment/Plan Comment:: August 07, 2016 This might represent a side effect of methotrexate. Will give vancomycin and zosyn and steroids oral nystatin close monitoring. Clay Esteves MD
[2016-08-07] MEDS: Vancomycin 1.5 GM in Sodium Chloride 0.9% 500 ML IV SCH (13:22)
[2016-08-07 13:28] LABS: CHLORIDE,CL 102 mmol/L (98-110); SODIUM,NA 132 mmol/L (136-146)
[2016-08-07] MEDS ORDERED: Piperacillin/Tazobactam 3.375 GM in Sodium Chloride 0.9% 50 ML IV SCH (14:00)
[2016-08-07] MEDS: Nystatin Susp 100,000 Unit/ML 5 ML UD Cup PO SCH ×2 (14:11→17:23)
[2016-08-07] MEDS: Gabapentin 300 MG Cap PO SCH ×2 (14:11→21:25)
[2016-08-07] MEDS ORDERED: Acetaminophen/HYDROcodone 325-5 MG Tab PO PRN ×2 (15:06→15:16)
[2016-08-07] MEDS: Piperacillin/Tazobactam 3.375 GM in Sodium Chloride 0.9% 50 ML IV SCH ×2 (15:29→20:42)
[2016-08-07] MEDS: atorvaSTATin 40 MG Tab PO SCH (20:42)
[2016-08-07] MEDS: rOPINIRole 0.5 MG Tab PO SCH (21:25)
[2016-08-08] MEDS: Nystatin Susp 100,000 Unit/ML 5 ML UD Cup PO SCH ×4 (00:23→16:59)
[2016-08-08] MEDS: Vancomycin 1.5 GM in Sodium Chloride 0.9% 500 ML IV SCH ×2 (00:24→12:51)
[2016-08-08] MEDS: Piperacillin/Tazobactam 3.375 GM in Sodium Chloride 0.9% 50 ML IV SCH ×4 (02:29→20:28)
[2016-08-08 05:58] LABS: CHLORIDE,CL 104 mmol/L (98-110); SODIUM,NA 136 mmol/L (136-146)
[2016-08-08] MEDS: Gabapentin 300 MG Cap PO SCH ×3 (06:16→21:10)
[2016-08-08] MEDS: Heparin Sodium 5,000 Units/ML Vial SUBCUT SCH ×2 (08:56→15:36)
[2016-08-08] MEDS: amLODIPine 5 MG Tab PO SCH (09:09)
[2016-08-08] MEDS: Folic Acid 1 MG Tab PO SCH (09:09)
[2016-08-08] MEDS: Aspirin 81 MG Tab.Chew PO SCH (09:09)
[2016-08-08] MEDS: Bacitracin/Neomycin/Polymyxin B Oint 28.4 GM Tube TOP SCH ×3 (09:49→21:11)
[2016-08-08] MEDS ORDERED: methylPREDNISolone Sodium Succinate 125 MG/2 ML SDV IVPUSH ONE (11:21)
--- NOTE | 2016-08-08 14:02 | PCM.PN ---
- Review of Systems Systems Review Comment:: reports pain and erythema improving, pain when eating due to mouth sores - Patient Data Vitals - most recent: Last Vital Signs Temp 36.3 C 08/08/16 11:50 Pulse 87 08/08/16 11:50 Resp 22 H 08/08/16 11:50 BP 131/65 08/08/16 11:50 Pulse Ox 92 L 08/08/16 11:50 Weight - most recent: 86.5 kg I&O - last 24 hours: Intake & Output 08/07/16 08/08/16 08/08/16 22:59 06:59 14:59 Intake Total 200 1030 Output Total 200 250 Balance 0 780 Lab Results last 24 hrs: Laboratory Results - last 24 hr 08/08/16 08/08/16 Range/Units 04:39 04:39 WBC 8.75 (4.0-11.0) K/uL RBC 3.03 L (4.50-5.90) M/uL Hgb 10.3 L (13.0-17.0) g/dL Hct 32.1 L (38.0-50.0) % MCV 105.9 H (80.0-98.0) fL MCH 34.0 H (27.0-32.0) pg MCHC 32.1 (31.0-37.0) g/dL RDW Std Deviation 65.5 H (28.0-62.0) fl RDW Coeff of Jesse 17 H (11.0-15.0) % Plt Count 118 L (150-400) K/uL MPV 10.00 (7.40-12.00) fL Neut % (Auto) 97.6 H (48.0-80.0) % Lymph % (Auto) 2.1 L (16.0-40.0) % [place] % (Auto) 0.2 (0.0-15.0) % Eos % (Auto) 0.0 (0.0-7.0) % Baso % (Auto) 0.1 (0.0-1.5) % Neut # (Auto) 8.5 H (1.4-5.7) K/uL Lymph # (Auto) 0.2 L (0.6-2.4) K/uL [place] # (Auto) 0.0 (0.0-0.8) K/uL Eos # (Auto) 0.0 (0.0-0.7) K/uL Baso # (Auto) 0.0 (0.0-0.1) K/uL Nucleated RBC % 0.0 /100WBC Nucleated RBCs # 0 K/uL Sodium 136 (136-146) mmol/L Potassium 4.3 (3.5-5.1) mmol/L Chloride 104 (98-110) mmol/L Carbon Dioxide 24 (21-31) mmol/L BUN 17 (6.0-23.0) mg/dL Creatinine 0.9 (0.6-1.5) mg/dL Est Cr Clr Drug Dosing 68.51 mL/min Estimated GFR (MDRD) > 60.0 ml/min Glucose 177 H (60-110) mg/dL Calcium 7.7 L (8.8-10.8) mg/dL Total Bilirubin 1.6 H (0.1-1.5) mg/dL AST 34 (5-40) IU/L ALT 22 (8-54) IU/L Alkaline Phosphatase 85 (40-150) Total Protein 5.4 L (6.0-8.0) g/dL Albumin 2.2 L (3.4-4.8) g/dL Globulin 3.2 (2.0-3.5) g/dL Albumin/Globulin Ratio 0.7 L (1.3-2.8) Med Orders - Current: Current Medications Hydrocodone Bitart/Acetaminophen ([place] 325-5 Mg) 1 - 2 tab PO Q4H PRN PRN Reason: pain Last Admin: 08/07/16 15:22 Dose: 2 tab Amlodipine Besylate (Norvasc) 5 mg PO DAILY [facility] Last Admin: 08/08/16 09:09 Dose: 5 mg Aspirin (Aspirin) 324 mg PO DAILY [facility] Last Admin: 08/08/16 09:09 Dose: 324 mg Atorvastatin Calcium (Lipitor) 80 mg PO BEDTIME [facility] Last Admin: 08/07/16 20:42 Dose: 80 mg Folic Acid (Folic Acid) 1 mg PO DAILY [facility] Last Admin: 08/08/16 09:09 Dose: 1 mg Gabapentin (Neurontin) 300 mg PO TID [facility] Last Admin: 08/08/16 06:16 Dose: 300 mg Heparin Sodium (Porcine) (Heparin Sodium) 5,000 units SUBCUT Q8H [facility] Last Admin: 08/08/16 08:56 Dose: 5,000 units Vancomycin HCl 1.5 gm/ Sodium (Chloride) 500 mls @ 250 mls/hr IV Q12H [facility] Last Admin: 08/08/16 12:51 Dose: 250 mls/hr Piperacillin Sod/Tazobactam (Sod 3.375 gm/ Sodium Chloride) 50 mls @ 100 mls/ hr IV Q6H [facility] Last Admin: 08/08/16 09:10 Dose: 100 mls/hr Lorazepam (Ativan) 1 mg IVPUSH Q4H PRN PRN Reason: Anxiety Neomycin/Polymyxin/Bacitracin (Triple Antibiotic Oint) 1 gm TOP TID [facility] Last Admin: 08/08/16 09:49 Dose: 1 applic Nystatin (Mycostatin) 5 ml PO QID [facility] Last Admin: 08/08/16 12:16 Dose: 5 ml Ropinirole HCl (Requip) 0.5 mg PO BEDTIME [facility] Last Admin: 08/07/16 21:25 Dose: 0.5 mg Sodium Chloride (Saline Flush) 10 ml FLUSH ASDIRECTED PRN PRN Reason: Keep Vein Open Sodium Chloride (Saline Flush) 2.5 ml FLUSH ASDIRECTED PRN PRN Reason: Keep Vein Open Temazepam (Restoril) 15 mg PO BEDTIME PRN PRN Reason: Sleep Vancomycin HCl (Pharmacy To Dose - Vancomycin) 1 dose .XX ASDIRECTED [facility] Discontinued Medications Hydrocodone Bitart/Acetaminophen ([place] 325-5 Mg) 1 tab PO Q4H PRN PRN Reason: pain Piperacillin Sod/Tazobactam (Sod 3.375 gm/ Sodium Chloride) 50 mls @ 100 mls/ hr IV Q6H [facility] Last Admin: 08/07/16 14:16 Dose: Not Given Methylprednisolone Sodium Succinate (Solu-Medrol) 125 mg IVPUSH ONETIME ONE Stop: 08/07/16 11:45 Last Admin: 08/07/16 12:24 Dose: 125 mg Methylprednisolone Sodium Succinate (Solu-Medrol) 125 mg IVPUSH ONETIME ONE Stop: 08/08/16 11:22 Last Admin: 08/08/16 12:16 Dose: 125 mg - Exam General: alert, oriented Lungs: Clear to auscultation, Normal respiratory effort Cardiovascular: Regular Rate, Regular Rhythm Abdomen: bowel sounds present, soft, no tenderness, no distension Extremities: edema (mild pedal edema) Skin: rash (patchy erythemta of dorsum of foot extending up anterior leg below knee bilterally) - Problem List Review Problem List Initiated/Reviewed/Updated: Yes - Plan Plan:: 75 yo male with history of erythema multiforme with mucosal involvement admitted for cellulitis. Will continue vancomycin and zosyn and steroids oral nystatin
[2016-08-08] MEDS: rOPINIRole 0.5 MG Tab PO SCH (20:26)
[2016-08-08] MEDS: atorvaSTATin 40 MG Tab PO SCH (20:27)
[2016-08-09] MEDS: Nystatin Susp 100,000 Unit/ML 5 ML UD Cup PO SCH ×4 (00:14→17:54)
[2016-08-09] MEDS: Heparin Sodium 5,000 Units/ML Vial SUBCUT SCH ×2 (00:14→09:08)
[2016-08-09] MEDS: Vancomycin 1.5 GM in Sodium Chloride 0.9% 500 ML IV SCH ×2 (00:31→12:54)
[2016-08-09] MEDS: Piperacillin/Tazobactam 3.375 GM in Sodium Chloride 0.9% 50 ML IV SCH ×4 (03:07→20:26)
[2016-08-09] MEDS: Gabapentin 300 MG Cap PO SCH ×3 (05:17→21:08)
[2016-08-09] MEDS: Bacitracin/Neomycin/Polymyxin B Oint 28.4 GM Tube TOP SCH ×3 (05:18→21:08)
[2016-08-09 06:13] LABS: CHLORIDE,CL 111 mmol/L (98-110); SODIUM,NA 141 mmol/L (136-146)
[2016-08-09] MEDS: amLODIPine 5 MG Tab PO SCH (08:01)
[2016-08-09] MEDS: Folic Acid 1 MG Tab PO SCH (08:01)
[2016-08-09] MEDS ORDERED: Ondansetron 4 MG/2 ML SDV IVPUSH PRN (09:00)
[2016-08-09] MEDS: Aspirin 81 MG Tab.Chew PO SCH (09:06)
[2016-08-09] MEDS ORDERED: Phenol 1.4% Oral Spray 177 ML Bottle MUCMEM PRN (10:28)
[2016-08-09] MEDS ORDERED: Pantoprazole 80 MG in Sodium Chloride 0.9% 20 ML IV ONE (10:45)
--- NOTE | 2016-08-09 11:18 | PCM.PN ---
- Review of Systems Systems Review Comment:: swelling pain and erythema improving, patient is happy with improvement in cellulitis. He does reports darks stool this morning. He reports having dark stool for a month with some suprapubic pain with the stooling. - Patient Data Vitals - most recent: Last Vital Signs Temp 36.5 C 08/09/16 08:00 Pulse 107 H 08/09/16 08:00 Resp 18 08/09/16 08:00 BP 116/61 08/09/16 08:01 Pulse Ox 94 L 08/09/16 10:00 Weight - most recent: 86.5 kg I&O - last 24 hours: Intake & Output 08/08/16 08/09/16 08/09/16 22:59 06:59 14:59 Intake Total 475 650 50 Output Total 250 450 Balance 225 200 50 Lab Results last 24 hrs: Laboratory Results - last 24 hr 08/09/16 08/09/16 08/09/16 Range/Units 05:09 05:09 05:09 WBC 7.49 (4.0-11.0) K/uL RBC 2.23 L (4.50-5.90) M/uL Hgb 7.5 L (13.0-17.0) g/dL Hct 23.4 L (38.0-50.0) % MCV 104.9 H (80.0-98.0) fL MCH 33.6 H (27.0-32.0) pg MCHC 32.1 (31.0-37.0) g/dL RDW Std Deviation 65.8 H (28.0-62.0) fl RDW Coeff of Jesse 17 H (11.0-15.0) % Plt Count 112 L (150-400) K/uL MPV 11.00 (7.40-12.00) fL Neut % (Auto) 97.1 H (48.0-80.0) % Lymph % (Auto) 2.9 L (16.0-40.0) % [place] % (Auto) 0.0 (0.0-15.0) % Eos % (Auto) 0.0 (0.0-7.0) % Baso % (Auto) 0.0 (0.0-1.5) % Neut # (Auto) 7.3 H (1.4-5.7) K/uL Lymph # (Auto) 0.2 L (0.6-2.4) K/uL [place] # (Auto) 0.0 (0.0-0.8) K/uL Eos # (Auto) 0.0 (0.0-0.7) K/uL Baso # (Auto) 0.0 (0.0-0.1) K/uL Nucleated RBC % 0.0 /100WBC Nucleated RBCs # 0 K/uL Sodium 141 (136-146) mmol/L Potassium 4.3 (3.5-5.1) mmol/L Chloride 111 H (98-110) mmol/L Carbon Dioxide 21 (21-31) mmol/L BUN 28 H (6.0-23.0) mg/dL Creatinine 0.8 (0.6-1.5) mg/dL Est Cr Clr Drug Dosing 77.07 mL/min Estimated GFR (MDRD) > 60.0 ml/min Glucose 174 H (60-110) mg/dL Calcium 7.6 L (8.8-10.8) mg/dL Iron 114 (50-170) ug/dL TIBC (273-456) ug/dL % Saturation (20-55) % Total Bilirubin 1.3 (0.1-1.5) mg/dL AST 34 (5-40) IU/L ALT 20 (8-54) IU/L Alkaline Phosphatase 69 (40-150) Total Protein 4.5 L (6.0-8.0) g/dL Albumin 1.9 L (3.4-4.8) g/dL Globulin 2.6 (2.0-3.5) g/dL Albumin/Globulin Ratio 0.7 L (1.3-2.8) Med Orders - Current: Current Medications Hydrocodone Bitart/Acetaminophen ([place] 325-5 Mg) 1 - 2 tab PO Q4H PRN PRN Reason: pain Last Admin: 08/07/16 15:22 Dose: 2 tab Amlodipine Besylate (Norvasc) 5 mg PO DAILY [facility] Last Admin: 08/09/16 08:01 Dose: 5 mg Atorvastatin Calcium (Lipitor) 80 mg PO BEDTIME [facility] Last Admin: 08/08/16 20:27 Dose: 80 mg Folic Acid (Folic Acid) 1 mg PO DAILY [facility] Last Admin: 08/09/16 08:01 Dose: 1 mg Gabapentin (Neurontin) 300 mg PO TID [facility] Last Admin: 08/09/16 05:17 Dose: 300 mg Vancomycin HCl 1.5 gm/ Sodium (Chloride) 500 mls @ 250 mls/hr IV Q12H [facility] Last Admin: 08/09/16 00:31 Dose: 250 mls/hr Piperacillin Sod/Tazobactam (Sod 3.375 gm/ Sodium Chloride) 50 mls @ 100 mls/ hr IV Q6H [facility] Last Admin: 08/09/16 08:01 Dose: 100 mls/hr Pantoprazole Sodium 80 mg/ (Sodium Chloride) 100 mls @ 10 mls/hr IV Q10H [facility] Lorazepam (Ativan) 1 mg IVPUSH Q4H PRN PRN Reason: Anxiety Neomycin/Polymyxin/Bacitracin (Triple Antibiotic Oint) 1 gm TOP TID [facility] Last Admin: 08/09/16 05:18 Dose: 1 applic Nystatin (Mycostatin) 5 ml PO QID [facility] Last Admin: 08/09/16 05:17 Dose: 5 ml Ondansetron HCl (Zofran) 4 mg IVPUSH Q4H PRN PRN Reason: Nausea Last Admin: 08/09/16 09:12 Dose: 4 mg Phenol/Menthol (Chloraseptic Throat [place]) 1 ml MUCMEM Q2H PRN PRN Reason: Sore Throat Last Admin: 08/09/16 11:12 Dose: 1 spr Ropinirole HCl (Requip) 0.5 mg PO BEDTIME [facility] Last Admin: 08/08/16 20:26 Dose: 0.5 mg Sodium Chloride (Saline Flush) 10 ml FLUSH ASDIRECTED PRN PRN Reason: Keep Vein Open Sodium Chloride (Saline Flush) 2.5 ml FLUSH ASDIRECTED PRN PRN Reason: Keep Vein Open Temazepam (Restoril) 15 mg PO BEDTIME PRN PRN Reason: Sleep Vancomycin HCl (Pharmacy To Dose - Vancomycin) 1 dose .XX ASDIRECTED [facility] Discontinued Medications Hydrocodone Bitart/Acetaminophen ([place] 325-5 Mg) 1 tab PO Q4H PRN PRN Reason: pain Aspirin (Aspirin) 324 mg PO DAILY [facility] Last Admin: 08/09/16 09:06 Dose: Not Given Heparin Sodium (Porcine) (Heparin Sodium) 5,000 units SUBCUT Q8H [facility] Last Admin: 08/09/16 09:08 Dose: Not Given Piperacillin Sod/Tazobactam (Sod 3.375 gm/ Sodium Chloride) 50 mls @ 100 mls/ hr IV Q6H [facility] Last Admin: 08/07/16 14:16 Dose: Not Given Pantoprazole Sodium 80 mg/ (Sodium Chloride) 20 mls @ 80 mls/hr IV ONETIME ONE Stop: 08/09/16 10:59 Methylprednisolone Sodium Succinate (Solu-Medrol) 125 mg IVPUSH ONETIME ONE Stop: 08/07/16 11:45 Last Admin: 08/07/16 12:24 Dose: 125 mg Methylprednisolone Sodium Succinate (Solu-Medrol) 125 mg IVPUSH ONETIME ONE Stop: 08/08/16 11:22 Last Admin: 08/08/16 12:16 Dose: 125 mg - Exam General: alert, oriented Lungs: Clear to auscultation, Normal respiratory effort Cardiovascular: Regular Rate, Regular Rhythm Abdomen: bowel sounds present, no tenderness, no distension Extremities: other - Problem List Review Problem List Initiated/Reviewed/Updated: Yes - My Orders Last 24 Hours: My Active Orders 08/09/16 08:58 Hemoccult [Fecal Occult Blood Collection] [RC] ASDIRECTED Hemoccult [OCCULT BLOOD DIAGNOSTIC] [OP] Routine 08/09/16 11:14 Antiembolic Devices [RC] PER UNIT ROUTINE SCD [Sequential Compression Device] [OM.PC] Routine 08/09/16 17:00 CBC WITH AUTO DIFF [HEME] Routine - Plan Plan:: 75 yo male with history of erythema multiforme with mucosal involvement admitted for cellulitis. Will continue vancomycin and zosyn oral nystatin Suspect GI bleed: Hgb dropped to 7.5, will place on PPI drip, will trend CBC, will d/c ASA and heparin
[2016-08-09] MEDS: Pantoprazole 80 MG in Sodium Chloride 0.9% 100 ML IV SCH ×2 (11:39→20:28)
--- NOTE | 2016-08-09 14:22 | CT ---
CT of the abdomen and pelvis without contrast. HISTORY: Pain Comparison: 09/13/2015. TECHNIQUE: Axial CT images were obtained of the abdomen and pelvis without contrast. Coronal and sag ittal reconstructions obtained. FINDINGS: There is scarring within the lung bases. There is a tiny 4 mm subpleural nodule within the left lowe r lobe laterally. The liver, spleen, adrenal glands, and pancreas appear unremarkable for noncontrast examination. Cho lelithiasis with mild pericholecystic stranding. There is also a trace perihepatic fluid. There is n o bulky retroperitoneal lymphadenopathy. No abdominal ascites. Small right renal cortical cysts noted. 4 mm nonobstructing stone within the lower pole of the left kidney. The large and small bowel are normal in caliber without evidence of obstruction. The appendix appear s normal. There is no bulky pelvic lymphadenopathy. No free fluid. No free air. The urinary bladder appears normal. There is a stent within the left common iliac artery. Degenerative changes noted within the lower lumbar spine trace anterolisthesis of L4 on L5 and L5 on S1. Bilateral posterior fusion hardware noted at L5-S1. No suspicious osseous abnormalities identif ied. IMPRESSION: 1. Cholelithiasis with mild pericholecystic stranding. Correlate clinically for cholecystitis. 2. Trace perihepatic fluid is also noted. 3. Left nonobstructing nephrolithiasis. 4. Right renal cortical cysts. 5. Tiny 4 mm nodule within the left lung base. Stable.
--- NOTE | 2016-08-09 19:27 | PCM.SN ---
- Free Text/Narrative Note: Called by nursing for additional IV access for blood transfusion and they have been unable to obtain it. 20g PIV was started to Lt AC. Draws blood and flushes easily. Pt tolerated placement well.
[2016-08-09] MEDS: atorvaSTATin 40 MG Tab PO SCH (20:30)
[2016-08-09] MEDS: rOPINIRole 0.5 MG Tab PO SCH (21:08)
[2016-08-10] MEDS: Nystatin Susp 100,000 Unit/ML 5 ML UD Cup PO SCH ×2 (00:06→06:30)
[2016-08-10] MEDS: Piperacillin/Tazobactam 3.375 GM in Sodium Chloride 0.9% 50 ML IV SCH ×2 (03:21→08:05)
[2016-08-10 04:23] LABS: CHLORIDE,CL 113 mmol/L (98-110); SODIUM,NA 142 mmol/L (136-146)
[2016-08-10] MEDS: Bacitracin/Neomycin/Polymyxin B Oint 28.4 GM Tube TOP SCH (06:30)
[2016-08-10] MEDS: Gabapentin 300 MG Cap PO SCH (06:30)
[2016-08-10] MEDS: amLODIPine 5 MG Tab PO SCH (08:09)
[2016-08-10] MEDS: Folic Acid 1 MG Tab PO SCH (08:09)
[2016-08-10] MEDS: Pantoprazole 80 MG in Sodium Chloride 0.9% 100 ML IV SCH (08:44)
--- NOTE | 2016-08-10 10:09 | PCM.DCSUM1 ---
Discharge Summary - Discharge Data Discharge Date: 08/10/16 Discharge Disposition: Home, Self-Care 01 Condition: Good - Patient Summary/Data Hospital Course: Admission Diagnosis: Erythema multiform with mucosal involvement Cellulitis Discharge diagnosis: Acute blood loss anemia GI bleed Thrombocytopenia Secondary Diagnosis HTN Dyslipidemia Eczema Rheumatoid arthritis Hospital course: 75 yo male who last month developed a rash on hands and legs with oral ulcers. He was thought to have erythema multiforme from levaquin. He was treated with prednisone. But the rash had worsened with developement of ulcers on hands and painful swelling of the lower legs with erythema extending to the knees. He was admitted and placed on vancomycin, zosyn and solumedrol. The rash did improve greatly but he did have a drop in his hemaglobin from 10.2 to 6.2 and platelets from 140 to 58. He reported lower abdominal pain and dark stools the morning of 08/09/16. CT scan of abdomen reported cholelithiasis with mild cholecystic stranding. He was placed on a protonix drip and transfused four units of pRBC. After the first two units is hgb was 7.6. I called [facility] requesting transfer for GI consultation. Dr. Mann has accepted the patient. He remains hemodynamically stable. Ground transportation is being arranged. - Discharge Plan Home Medications: Home Meds Aspirin 325 mg PO DAILY 06/01/13 [History] amLODIPine [Norvasc] 5 mg PO DAILY 05/12/14 [History] Methotrexate Sodium [Methotrexate] 15 mg PO WE@0900 08/18/15 [History] atorvaSTATin Calcium [Atorvastatin Calcium] 80 mg PO BEDTIME 08/18/15 [History] rOPINIRole HCl [Requip] 0.5 mg PO BEDTIME 08/18/15 [History] Folic Acid 1 mg PO DAILY #90 tablet 07/10/16 [Rx] Prednisone [IJD: Prednisone] 10 mg PO ASDIRECTED #85 tab 07/10/16 [Rx] Cephalexin [Keflex] 500 mg PO QID #40 capsule 07/26/16 [Rx] Referrals: King Shell MD [Physician] - - Patient Data Vitals - Most Recent: Last Vital Signs Temp 36.4 C 08/10/16 09:12 Pulse 78 08/10/16 09:12 Resp 18 08/10/16 09:12 BP 153/70 H 08/10/16 09:12 Pulse Ox 92 L 08/10/16 09:12 Weight - Most Recent: 86.3 kg I&O - Last 24 hours: Intake & Output 08/09/16 08/10/16 08/10/16 22:59 06:59 14:59 Intake Total 1525 2279 495 Output Total 400 50 Balance 1125 2229 495 Lab Results - Last 24 hrs: Laboratory Results - last 24 hr 08/09/16 08/09/16 08/09/16 Range/Units 11:30 11:30 12:25 WBC (4.0-11.0) K/uL RBC (4.50-5.90) M/uL Hgb (13.0-17.0) g/dL Hct (38.0-50.0) % MCV (80.0-98.0) fL MCH (27.0-32.0) pg MCHC (31.0-37.0) g/dL RDW Std Deviation (28.0-62.0) fl RDW Coeff of Jesse (11.0-15.0) % Plt Count (150-400) K/uL MPV (7.40-12.00) fL Neut % (Auto) (48.0-80.0) % Lymph % (Auto) (16.0-40.0) % [place] % (Auto) (0.0-15.0) % Eos % (Auto) (0.0-7.0) % Baso % (Auto) (0.0-1.5) % Neut # (Auto) (1.4-5.7) K/uL Lymph # (Auto) (0.6-2.4) K/uL [place] # (Auto) (0.0-0.8) K/uL Eos # (Auto) (0.0-0.7) K/uL Baso # (Auto) (0.0-0.1) K/uL Nucleated RBC % /100WBC Nucleated RBCs # K/uL Sodium (136-146) mmol/L Potassium (3.5-5.1) mmol/L Chloride (98-110) mmol/L Carbon Dioxide (21-31) mmol/L BUN (6.0-23.0) mg/dL Creatinine (0.6-1.5) mg/dL Est Cr Clr Drug Dosing mL/min Estimated GFR (MDRD) ml/min Glucose (60-110) mg/dL Calcium (8.8-10.8) mg/dL Total Bilirubin (0.1-1.5) mg/dL AST (5-40) IU/L ALT (8-54) IU/L Alkaline Phosphatase (40-150) Total Protein (6.0-8.0) g/dL Albumin (3.4-4.8) g/dL Globulin (2.0-3.5) g/dL Albumin/Globulin Ratio (1.3-2.8) Urine Color YELLOW Urine Appearance CLEAR Urine pH 5.5 (5.0-8.0) Ur Specific Power 1.025 (1.001-1.035) Urine Protein NEGATIVE (NEGATIVE) mg/dL Urine Glucose (UA) NEGATIVE (NEGATIVE) mg/dL Urine Ketones NEGATIVE (NEGATIVE) mg/dL Urine Occult Blood MODERATE (NEGATIVE) Urine Nitrite NEGATIVE (NEGATIVE) Urine Bilirubin NEGATIVE (NEGATIVE) Urine Urobilinogen 1.0 (<2.0) EU/dL Ur Leukocyte Esterase MODERATE (NEGATIVE) Urine RBC 2-4 (0-2/HPF) Urine WBC 25-30 (0-5/HPF) Ur Epithelial Cells FEW (NONE-FEW) Urine Bacteria FEW (NEGATIVE) Urine Mucus LIGHT (NONE-MOD) Urine Yeast MANY Vancomycin Trough 20.2 H (5-15) ug/mL Blood Type O POSITIVE Antibody Screen NEGATIVE Crossmatch See Detail 08/09/16 08/10/16 08/10/16 Range/Units 17:07 03:52 03:52 WBC 4.36 3.04 L (4.0-11.0) K/uL RBC 1.80 L 2.33 L (4.50-5.90) M/uL Hgb 6.2 L 7.6 L (13.0-17.0) g/dL Hct 19.2 L 23.3 L (38.0-50.0) % MCV 106.7 H 100.0 H (80.0-98.0) fL MCH 34.4 H 32.6 H (27.0-32.0) pg MCHC 32.3 32.6 (31.0-37.0) g/dL RDW Std Deviation 66.9 H 72.7 H (28.0-62.0) fl RDW Coeff of Jesse 17 H 21 H (11.0-15.0) % Plt Count 73 L 58 L (150-400) K/uL MPV 10.10 10.60 (7.40-12.00) fL Neut % (Auto) 94.1 H 87.9 H (48.0-80.0) % Lymph % (Auto) 5.7 L 11.8 L (16.0-40.0) % [place] % (Auto) 0.2 0.3 (0.0-15.0) % Eos % (Auto) 0.0 0.0 (0.0-7.0) % Baso % (Auto) 0.0 0.0 (0.0-1.5) % Neut # (Auto) 4.1 2.7 (1.4-5.7) K/uL Lymph # (Auto) 0.3 L 0.4 L (0.6-2.4) K/uL [place] # (Auto) 0.0 0.0 (0.0-0.8) K/uL Eos # (Auto) 0.0 0.0 (0.0-0.7) K/uL Baso # (Auto) 0.0 0.0 (0.0-0.1) K/uL Nucleated RBC % 0.0 0.0 /100WBC Nucleated RBCs # 0 0 K/uL Sodium 142 (136-146) mmol/L Potassium 4.0 (3.5-5.1) mmol/L Chloride 113 H (98-110) mmol/L Carbon Dioxide 22 (21-31) mmol/L BUN 34 H (6.0-23.0) mg/dL Creatinine 0.8 (0.6-1.5) mg/dL Est Cr Clr Drug Dosing 77.07 mL/min Estimated GFR (MDRD) > 60.0 ml/min Glucose 146 H (60-110) mg/dL Calcium 7.8 L (8.8-10.8) mg/dL Total Bilirubin 1.5 (0.1-1.5) mg/dL AST 61 H (5-40) IU/L ALT 34 (8-54) IU/L Alkaline Phosphatase 61 (40-150) Total Protein 4.7 L (6.0-8.0) g/dL Albumin 1.9 L (3.4-4.8) g/dL Globulin 2.8 (2.0-3.5) g/dL Albumin/Globulin Ratio 0.7 L (1.3-2.8) Urine Color Urine Appearance Urine pH (5.0-8.0) Ur Specific Power (1.001-1.035) Urine Protein (NEGATIVE) mg/dL Urine Glucose (UA) (NEGATIVE) mg/dL Urine Ketones (NEGATIVE) mg/dL Urine Occult Blood (NEGATIVE) Urine Nitrite (NEGATIVE) Urine Bilirubin (NEGATIVE) Urine Urobilinogen (<2.0) EU/dL Ur Leukocyte Esterase (NEGATIVE) Urine RBC (0-2/HPF) Urine WBC (0-5/HPF) Ur Epithelial Cells (NONE-FEW) Urine Bacteria (NEGATIVE) Urine Mucus (NONE-MOD) Urine Yeast Vancomycin Trough (5-15) ug/mL Blood Type Antibody Screen Crossmatch SAM Results - Last 24 hrs: Microbiology 08/09/16 11:26 Stool Occult Blood (SAM) - Final Stool / Feces - Stool, Liquid POSITIVE OCCULT BLOOD Med Orders - Current: Current Medications Hydrocodone Bitart/Acetaminophen ([place] 325-5 Mg) 1 - 2 tab PO Q4H PRN PRN Reason: pain Last Admin: 08/07/16 15:22 Dose: 2 tab Amlodipine Besylate (Norvasc) 5 mg PO DAILY [facility] Last Admin: 08/10/16 08:09 Dose: 5 mg Atorvastatin Calcium (Lipitor) 80 mg PO BEDTIME [facility] Last Admin: 08/09/16 20:30 Dose: 80 mg Folic Acid (Folic Acid) 1 mg PO DAILY [facility] Last Admin: 08/10/16 08:09 Dose: 1 mg Gabapentin (Neurontin) 300 mg PO TID [facility] Last Admin: 08/10/16 06:30 Dose: 300 mg Piperacillin Sod/Tazobactam (Sod 3.375 gm/ Sodium Chloride) 50 mls @ 100 mls/ hr IV Q6H [facility] Last Admin: 08/10/16 08:05 Dose: 100 mls/hr Pantoprazole Sodium 80 mg/ (Sodium Chloride) 100 mls @ 10 mls/hr IV Q10H [facility] Last Admin: 08/10/16 08:44 Dose: 10 mls/hr Vancomycin HCl 1.25 gm/ Sodium (Chloride) 250 mls @ 166.667 mls/hr IV Q12H [facility] Last Admin: 08/10/16 01:37 Dose: 166.667 mls/hr Lorazepam (Ativan) 1 mg IVPUSH Q4H PRN PRN Reason: Anxiety Neomycin/Polymyxin/Bacitracin (Triple Antibiotic Oint) 1 gm TOP TID [facility] Last Admin: 08/10/16 06:30 Dose: 1 applic Nystatin (Mycostatin) 5 ml PO QID [facility] Last Admin: 08/10/16 06:30 Dose: 5 ml Ondansetron HCl (Zofran) 4 mg IVPUSH Q4H PRN PRN Reason: Nausea Last Admin: 08/09/16 09:12 Dose: 4 mg Phenol/Menthol (Chloraseptic Throat [place]) 1 ml MUCMEM Q2H PRN PRN Reason: Sore Throat Last Admin: 08/09/16 11:12 Dose: 1 spr Ropinirole HCl (Requip) 0.5 mg PO BEDTIME [facility] Last Admin: 08/09/16 21:08 Dose: 0.5 mg Sodium Chloride (Saline Flush) 10 ml FLUSH ASDIRECTED PRN PRN Reason: Keep Vein Open Sodium Chloride (Saline Flush) 2.5 ml FLUSH ASDIRECTED PRN PRN Reason: Keep Vein Open Temazepam (Restoril) 15 mg PO BEDTIME PRN PRN Reason: Sleep Vancomycin HCl (Pharmacy To Dose - Vancomycin) 1 dose .XX ASDIRECTED [facility] Discontinued Medications Hydrocodone Bitart/Acetaminophen ([place] 325-5 Mg) 1 tab PO Q4H PRN PRN Reason: pain Aspirin (Aspirin) 324 mg PO DAILY [facility] Last Admin: 08/09/16 09:06 Dose: Not Given Heparin Sodium (Porcine) (Heparin Sodium) 5,000 units SUBCUT Q8H [facility] Last Admin: 08/09/16 09:08 Dose: Not Given Vancomycin HCl 1.5 gm/ Sodium (Chloride) 500 mls @ 250 mls/hr IV Q12H [facility] Stop: 08/09/16 18:00 Last Admin: 08/09/16 12:54 Dose: 250 mls/hr Piperacillin Sod/Tazobactam (Sod 3.375 gm/ Sodium Chloride) 50 mls @ 100 mls/ hr IV Q6H [facility] Last Admin: 08/07/16 14:16 Dose: Not Given Pantoprazole Sodium 80 mg/ (Sodium Chloride) 20 mls @ 80 mls/hr IV ONETIME ONE Stop: 08/09/16 10:59 Last Admin: 08/09/16 11:39 Dose: 80 mls/hr Methylprednisolone Sodium Succinate (Solu-Medrol) 125 mg IVPUSH ONETIME ONE Stop: 08/07/16 11:45 Last Admin: 08/07/16 12:24 Dose: 125 mg Methylprednisolone Sodium Succinate (Solu-Medrol) 125 mg IVPUSH ONETIME ONE Stop: 08/08/16 11:22 Last Admin: 08/08/16 12:16 Dose: 125 mg *Q Meaningful Use (DIS) - VTE *Q VTE Criteria *Q: - Stroke *Q Stroke Criteria *Q: - AMI *Q AMI Criteria *Q:
[2016-08-10 11:02] VITALS: BP 149/77
== END 2016-08-10 11:05 | DRG 596 ==
LOC: MW.ICU 10:32 → MW.MS 15:07
PROVIDERS: ADMIT Family Medicine; ATTEND Family Medicine
PROC: 30233N1 Transfusion of Nonautologous Red Blood Cells into Peripheral Vein, Percutaneous Approach (ICD-10-PCS; principal; 2016-08-10)
DX: L51.9 Erythema multiforme, unspecified (principal); L03.90 Cellulitis, unspecified; D62 Acute posthemorrhagic anemia; K92.2 Gastrointestinal hemorrhage, unspecified; B37.0 Candidal stomatitis; T88.7XXA Unspecified adverse effect of drug or medicament, initial encounter; D69.6 Thrombocytopenia, unspecified; I10 Essential (primary) hypertension; E78.5 Hyperlipidemia, unspecified; L30.9 Dermatitis, unspecified; M06.9 Rheumatoid arthritis, unspecified; Z88.8 Allergy status to other drugs, medicaments and biological substances; J44.9 Chronic obstructive pulmonary disease, unspecified; Z87.891 Personal history of nicotine dependence; I50.9 Heart failure, unspecified; R41.3 Other amnesia; Z79.899 Other long term (current) drug therapy
CPT/HCPCS: 36410; 36415; 36430; 74176; 74176-26; 80053; 80202; 81001; 82272; 83550; 83735; 85025; 85652; 86850; 86900; 86901; 86920; 86921; 86922; A9270-GY; C9113; J1644; J2405; J2543; J2930; J3370; J7030; J7040; J7050; P9016